=== PATIENT | male | born 1950 | race Caucasian/White ===

== ENCOUNTER 2016-09-08 12:54 | Outpatient (CLI) ==
[2016-09-08 13:26] LABS: BASOPHILS # (AUTO) 0.1 K/uL (0-0.2); BASOPHILS % (AUTO) 1.3 % (0.0-3.0); EOSINOPHILS # (AUTO) 0.2 K/ul (0.0-0.7); EOSINOPHILS % (AUTO) 3.7 % (0.0-7.0); HEMATOCRIT 44.3 % (42.0-52.0); HEMOGLOBIN 15.6 g/dl (14.0-18.0); IMMATURE GRANULOCYTE % (AUTO) 0.2 % (0.0-5.0); LYMPHOCYTES # (AUTO) 1.3 K/uL (0.60-3.4); LYMPHOCYTES % (AUTO) 21.6 (10.0-50.0); MEAN CORPUSCULAR HEMOGLOBIN 31.7 pg (27.0-31.0); MEAN CORPUSCULAR HGB CONC 35.2 (31.8-35.4); MONOCYTES # (AUTO) 0.7 K/uL (0.4-2.0); MONOCYTES % (AUTO) 10.8 (0-10); NEUTROPHILS # (AUTO) 3.8 K/ul (2.0-6.9); NEUTROPHILS % (AUTO) 62.4; PLATELET COUNT 265 10^3/uL (140-440); RED BLOOD COUNT 4.92 10^6/ul (4.70-6.10); WHITE BLOOD COUNT 6.02 K/ul (4.2-10.2)
[2016-09-08 13:41] LABS: ALBUMIN 4.1 g/dL (3.4-5.0); ALBUMIN/GLOBULIN RATIO 1.37; ANION GAP 14.6; BILIRUBIN,TOTAL 0.79 mg/dL (0.00-1.20); BUN/CREATININE RATIO 11.36; CALCIUM 9.5 mg/dL (8.2-10.2); CHOL/HDL RATIO 3.7 (4.5-6.4); CREATININE 0.88 mg/dL (0.60-1.10); POTASSIUM 4.6 mmol/L (3.5-5.1); TOTAL PROTEIN 7.1 g/dL (5.8-8.1)
== END 2016-09-08 12:55 | disposition home or self-care (01) ==
LOC: LAB 12:54
PROVIDERS: ATTEND Nurse Practitioner Family
DX: K21.9 Gastro-esophageal reflux disease without esophagitis (principal); E75.6 Lipid storage disorder, unspecified; K76.89 Other specified diseases of liver; Z12.5 Encounter for screening for malignant neoplasm of prostate
CPT/HCPCS: 36415; 80053; 80061; 80074; 85025

== ENCOUNTER 2016-10-11 10:09 | Outpatient (CLI) ==
--- NOTE | 2016-10-11 10:36 | CT ---
EXAM: CT Sinuses without contrast. HISTORY: Allergic rhinitis. Nasal drainage COMPARISON: None available. TECHNIQUE: Multiple axial images of the sinuses were obtained without intravenous contrast. Images were reformatted in the no sagittal and coronal plane. FINDINGS: Maxillary sinuses: Mild mucosal thickening bilaterally with partial opacification of the ostiomeata l units, greater on the left partially due to an old depressed left orbital floor fracture. Ethmoid sinuses: Moderate mucosal thickening bilaterally. Sphenoid sinuses: Mild mucosal thickening on the right. Left is clear. Frontal sinuses: Mild inferior right and moderate inferior left mucosal thickening. Nasal cavity: Mild leftward deviation of the nasal septum. Bilateral pinky bullosa, larger on the right. Mild nasal mucosal thickening bilaterally. Old left lamina papyracea fracture also noted Mastoid air cells are clear. No localized soft tissue abnormality identified. IMPRESSION: 1. Mild to moderate paranasal sinus mucosal disease. 2. Nasal mucosal thickening. 3. Mild leftward deviation of the nasal septum. 4. Old left orbital floor and lamina papyracea fractures
== END 2016-10-11 10:10 | disposition home or self-care (01) ==
LOC: RAD 10:09
PROVIDERS: ATTEND Nurse Practitioner Family
DX: J30.9 Allergic rhinitis, unspecified (principal)

== ENCOUNTER 2016-12-12 09:20 | Outpatient (CLI) | payer OTHER ==
--- NOTE | 2016-12-12 12:59 | MRI ---
EXAM: MRI right knee without contrast. HISTORY: Right knee pain. No right knee surgery reported.. TECHNIQUE: Using a local extremity coil on a high field strength magnet multiplanar multisequence ma gnet resonance imaging performed of the right knee without intravenous or intra-articular gadolinium contrast. FINDINGS: I do not have prior radiographs of the right knee available for comparison at the time of this dictation. Within the medial compartment the medial meniscus is intact without discrete surfacing meniscal tear. The medial compartment cartilage shows some mild chondrosis. No underlying subchondral edema. Tristan y productive osteophyte formation.. Within the lateral compartment the lateral meniscus intact without discrete surfacing meniscal tear. The lateral compartment cartilage congruent without focal underlying subchondral edema. Early produ ctive osteophyte formation. Within the patellofemoral compartment the patella seated with intact patellar attachment of the media l and lateral patellar retinaculum. Chondrosis over the central trochlear groove with trace subchond ral edema. The patellar cartilage relatively congruent. Early productive osteophyte formation viveros lofemoral compartment. Trace right knee effusion. 4 mm filling defect posteriorly at the joint line concerning for loose kristi dy. Intact ACL and PCL fibers. The extensor mechanism is intact as well.. The medial collateral li gament as well as lateral collateral ligament complex and posterolateral corner intact.. IMPRESSION: No discrete surfacing meniscal tear. Mild medial compartment chondrosis. Early tricompartmental productive osteophyte formation. Central trochlear groove chondrosis with trace subchondral edema. Trace right knee effusion. 4 mm filling defect posteriorly at the joint line concerning for loose kristi dy. Intact cruciate and collateral ligaments.
== END 2016-12-12 09:21 | disposition home or self-care (01) ==
LOC: RAD 09:20
PROVIDERS: ATTEND Nurse Practitioner Family
DX: M25.561 Pain in right knee (principal)

== ENCOUNTER 2017-04-19 16:36 | Outpatient (CLI) | payer OTHER | END 2017-04-19 16:37 | disposition home or self-care (01) | LOC: LAB 16:36 | PROVIDERS: ATTEND Nurse Practitioner Family | DX: K21.9 Gastro-esophageal reflux disease without esophagitis (principal); E75.6 Lipid storage disorder, unspecified; Z12.5 Encounter for screening for malignant neoplasm of prostate | CPT/HCPCS: 36415; 80053; 80061; 85025 ==

== ENCOUNTER 2017-07-27 09:44 | Observation (INO) ==
--- NOTE | 2017-07-27 11:07 | CT ---
EXAM: CT of the chest without contrast History: Chest pain and indigestion Comparison: CT abdomen pelvis 07/27/2017 Technique: Multiplanar CT images through the thorax were obtained without the administration of IV c ontrast Findings: Heart size is normal. No pericardial effusion. Coronary calcifications. Great vessels a re grossly unremarkable on this noncontrast study. No pathologically enlarged thoracic lymph nodes. No consolidation. No pleural fluid and no pneumothorax. 4 mm right lower lobe lung nodule. 1 mm lef t lower lobe lung nodule. No suspicious lung nodules or lung masses. For details in the upper abdomen, please see dedicated CT abdomen pelvis done on the same day. No acu te osseous abnormalities. Impression: 1. No acute intrathoracic process. 2. Coronary artery disease
--- NOTE | 2017-07-27 11:07 | CT ---
EXAM: CT ABDOMEN AND PELVIS HISTORY: Chronic epigastric pain TECHNIQUE: CT abdomen and pelvis without intravenous contrast. Images were reconstructed using 5 mm section thickness. Reformations were prepared. COMPARISON: 09/03/2015 FINDINGS: Diagnostic limitations exist without including contrast enhanced images. Stable small low attenuatio n lesion of the right hepatic lobe at about 12 mm, likely a cyst. Spleen within normal limits. Gallb ladder and pancreas are within normal limits. There is a 1 cm fatty nodule of the right adrenal glan d which is stable and most consistent with an adenoma. Punctate 1 mm calcification in the lower righ t kidney could be vascular in nature or secondary to a renal calculus. No hydronephrosis or ureteral obstruction. Mild atherosclerotic disease. Cannot exclude asymmetric thickening of the proximal gastric wall versus involuted mucosal architectu re from organ nondistension. The stomach was otherwise grossly unremarkable. Normal appendix. Norm al bowel gas pattern. Scattered colonic diverticulosis becoming more moderate at the distal colon. Prostate is mildly enlarged and lobulated. No definite gallbladder pathology. There is no ascites o r inflammatory infiltration of the abdominal fat. Ventral abdominal wall is intact. The bones reveal transitional vertebral body anatomy at the lumbos acral junction with moderately severe facet arthropathy of the lower spine. Bones appear demineraliz ed. There is mild pectus deformity placing mild mass effect on the anterior heart border. Lung base s are free of acute infiltrate and there is no evidence of pneumoperitoneum. IMPRESSION: 1. Possible asymmetric wall thickening of the stomach versus involuted - redundant mucosal architectu re from organ non distension. Consider further workup given history. 2. Stable probable right hepatic lobe cyst. 3. Stable fatty right adrenal nodule likely an adenoma. 4. Colonic diverticulosis without diverticulitis. 5. Early prostate enlargement and lobulation.
--- NOTE | 2017-07-27 11:54 | ED.PDOC ---
General ED Provider: Dr. POOJA ALEMAN Chief Complaint: Chest Pain Stated Complaint: epigastric abdominal pain Time Seen by Physician: 09:48 (drinks 1 pot a coffee per day) Mode of Arrival: Walk-In Information Source: Patient Exam Limitations: No limitations Primary Care Provider: JAGDISH FORD Nursing and Triage Documentation Reviewed and Agree: Yes Reviewed sepsis parameters & appropriate labs ordered?: Yes System Inflammatory Response Syndrome: Not Applicable Sepsis Protocol: For patient's 13 years and over: Temp is 96.8 and below OR 101 and greater Pulse >90 BPM Resp >20/minute Acutely Altered Mental Status Are patient's symptoms suggestive of a new infection, such as: -Pneumonia -Skin, Soft Tissue -Endocarditis -UTI -Bone, Joint Infection -Implantable Device -Acute Abdominal Infection -Wound Infection -Meningitis -Blood Stream Catheter Infection -Unknown System Inflammatory Response Syndrome: Not Applicable GI Complaint Exam - Abdominal Pain Complaint/Exam Onset: Gradual Duration: 1 night ago Symptoms Are: Resolved Timing: Intermittent Initial Severity: Mild Current Severity: None Location of Pain: Epigastric Radiates To: Reports: Chest. Denies: Back, Flank, LLQ, RLQ, Inguinal Character: Reports: Dull Aggravating: Reports: None Alleviating: Reports: None Associated Signs and Symptoms: Reports: Cough, Constipation. Denies: Diaphoresis, Fever, Chest pain, Dizziness, Back pain, Blood in stool, Dysuria, Urinary frequency, Decreased urine output, Decreased appetite, Discharge, Nausea , Vomiting, Diarrhea, Decreased activity Related History: Reports: Similar episode AAA Risk Factors: Reports: None, Hypertension Cardiac Risk Factors: Reports: Hypertension, Elevated lipids Testicular Torsion Risk Factors: Reports: None Surgical Obstruction Risk Factors: Reports: None Related Surgical History: Reports: None Abdominal Findings: Present: None Male Body Picture: 1 - pain Differential Diagnoses: PUD, Other (angina) Quality Indicators for AMI: EKG in 10min. Quality Indicators for Cardiac Chest Pain: EKG in 10min. Quality Indicator For Non-Traumatic Chest Pain/Syncope: EKG Performed Review of Systems - Review Of Systems Constitutional: Reports: No symptoms Eyes: Reports: No symptoms Ears, Nose, Mouth, Throat: Reports: No symptoms Respiratory: Reports: No symptoms Cardiac: Reports: Chest pain GI: Reports: Abdominal pain : Reports: No symptoms Musculoskeletal: Reports: No symptoms Skin: Reports: No symptoms Neurological: Reports: No symptoms Endocrine: Reports: No symptoms Hematologic/Lymphatic: Reports: No symptoms All Other Systems: Reviewed and Negative Past Medical History - Past Medical History Previously Healthy: Yes Endocrine: Reports: Dyslipidemia Cardiovascular: Reports: Hypertension Respiratory: Reports: None Hematological: Reports: None Gastrointestinal: Reports: None Genitourinary: Reports: None Neuro/Psych: Reports: None Musculoskeletal: Reports: None Cancer: Reports: None - Surgical History General Surgical History: Reports: None - Family History Family History: Reports: None - Social History Smoking Status: Never smoker Hx Substance Use: No Alcohol Screening: None Physical Exam - Physical Exam Appearance: Well-appearing, No pain distress, Well-nourished Eyes: ETTA, EOMI, Conjunctiva clear ENT: Ears normal, Nose normal, Oropharynx normal Respiratory: Airway patent, Breath sounds clear, Breath sounds equal, Respirations nonlabored Cardiovascular: RRR, Pulses normal, No rub, No murmur GI/: Soft, Nontender, No masses, Bowel sounds normal, No Organomegaly Musculoskeletal: Normal strength, ROM intact, No edema, No calf tenderness Skin: Warm, Dry, Normal color Neurological: Sensation intact, Motor intact, Reflexes intact, Cranial nerves intact, Alert, Oriented Psychiatric: Affect appropriate, Mood appropriate Physician Notification - Case Discussed Physician Notified: [email or web address] Time of Notification: 11:57 Admit To: Observation Critical Care Note - Critical Care Note Total Time (mins): 0 Course - Course Hematology/Chemistry: 07/27/17 10:05 07/27/17 10:05 Orders, Labs, Meds: Lab Review 07/27/17 07/27/17 10:05 10:05 WBC 6.47 RBC 4.55 L Hgb 14.3 Hct 40.5 L MCV 89.0 MCH 31.4 H MCHC 35.3 RDW Coeff of Tomas 12.9 Plt Count 232 Immature Gran % (Auto) 0.2 Neut % (Auto) 72.0 Lymph % (Auto) 18.1 Whitfield % (Auto) 7.0 Eos % (Auto) 1.9 Baso % (Auto) 0.8 Immature Gran # (Auto) 0.0 Neut # (Auto) 4.7 Lymph # (Auto) 1.2 Whitfield # (Auto) 0.5 Eos # (Auto) 0.1 Baso # (Auto) 0.1 Sodium 132 L Potassium 4.1 Chloride 99 Carbon Dioxide 25 Anion Gap 12.1 BUN 9 Creatinine 0.81 Estimated GFR (MDRD) 94.00 BUN/Creatinine Ratio 11.11 Glucose 133 H Calcium 9.2 Total Bilirubin 0.7 AST 17 ALT 11 L Alkaline Phosphatase 40 L Total Creatine Kinase 67 Troponin I < 0.0100 Total Protein 6.9 Albumin 3.8 Globulin 3.1 Albumin/Globulin Ratio 1.23 Orders Category Date Time Status EKG-(ED ONLY) Stat CARDIO 07/27/17 10:00 Completed CBC W/ AUTO DIFF Stat LAB 07/27/17 10:05 Completed COMPREHENSIVE METABOLIC PANEL Stat LAB 07/27/17 10:05 Completed CREATINE KINASE Stat LAB 07/27/17 10:05 Completed TROPONIN I Stat LAB 07/27/17 10:[address] ABDOMEN/PELVIS WO CONTRAST Stat RADS 07/27/17 10:[address] CHEST W/O CONTRAST Stat RADS 07/27/17 10:01 Completed Vital Signs: Temp Pulse Resp BP Pulse Ox 07/27/17 09:45 97.9 F 75 20 187/77 H 95 Departure - Departure Time of Disposition: 11:55 Disposition: PLACED OBSERVATION Discharge Problem: Chest pain Abdominal pain Qualifiers: Abdominal location: unspecified location Qualified Code(s): R10.9 - Unspecified abdominal pain Instructions: Angina (DC) Condition: Good Pt referred to PMD for follow-up: Yes IPMP verified?: No Additional Instructions: Please call your Family Physician as soon as possible to schedule a follow-up appointment. Allergies/Adverse Reactions: Allergies No Known Allergies Allergy (Verified 07/27/17 09:52) Home Medications: Ambulatory Orders Diphenhydramine HCl [Benadryl Allergy] 25 mg PO BEDTIME 07/27/17 Disposition Discussed With: Patient
[2017-07-27 13:56] VITALS: BMI 21.7
[2017-07-27] MEDS: SODIUM CHLORIDE 1,000 ML IV SCH (14:10)
[2017-07-27] MEDS ORDERED: GI COCKTAIL PO PRN (14:47)
[2017-07-27] MEDS: CARAFATE PO SCH ×3 (15:22→20:49)
[2017-07-27] MEDS: PROTONIX PO SCH (15:22)
[2017-07-28] MEDS: SODIUM CHLORIDE 1,000 ML IV SCH (02:03)
[2017-07-28] MEDS: CARAFATE PO SCH ×2 (05:50→12:54)
[2017-07-28] MEDS: PROTONIX PO SCH (05:50)
[2017-07-28] MEDS ORDERED: ZOCOR PO SCH (09:00)
[2017-07-28 11:08] VITALS: BP 151/82; TEMP 97.5
--- NOTE | 2017-08-28 10:49 | HP ---
DATE OF SERVICE: 07/27/17 CHIEF COMPLAINT: Chest pain. HISTORY OF PRESENT ILLNESS: The patient came to the emergency room with 3 to 4 months of intermittent chest pain, epigastric area that feels like indigestion but gradually the pain is going to the left side of the chest, radiates to the left arm sometimes associated with some shortness of breath. No fever, no chills. No dizziness. The patient was seen by Dr. Aranda in the emergency room. Given the patient's age of 67, intermittent pain, the patient was admitted to the hospital to rule out acute coronary syndrome. REVIEW OF SYSTEMS: CONSTITUTIONAL: No fever, no chills. HEENT: Normal. ENDOCRINE: No weight gain, no weight loss. CVS: Chest pain. Shortness of breath sometimes. Palpitations sometimes. No radiation. RESPIRATORY: No cough, no hemoptysis. GI: No nausea, no vomiting. No abdominal pain. : No hematuria. No polyuria. MUSCULOSKELETAL: No joint swelling. PSYCHIATRIC: Not anxious. No depression. No suicidal thoughts. No homicidal thoughts. SKIN: Intact. No rash. PHYSICAL EXAMINATION: V/S: BP 187/77, respiratory rate 20, heart rate 75, temperature 97.9, saturation 95. HEENT: Normocephalic, atraumatic. Mucosa dry. NECK: Supple. No JVD, no carotid bruit. No lymphadenopathy. LUNGS: Clear to auscultation. No rales or rhonchi. HEART: S1, S2 normal. No S3. No murmur, gallop or regurgitation. ABDOMEN: Soft, nontender. Bowel sounds active. No rigidity. No rebound or guarding. No CVA tenderness. EXTREMITIES: No cyanosis, clubbing or pedal edema. MUSCULOSKELETAL: No joint swelling. NEUROLOGIC: Awake, alert, oriented times three. No focal deficit. LYMPHATIC: No lymph nodes palpable. SKIN: Intact. LABS: White count 6.47, hemoglobin 14.3, hematocrit 40.5, platelet count 232. Sodium 132, potassium 4.1, chloride 99, bicarb 25, BUN 9, creatinine 0.81, glucose 133 , ALT 11, alkaline phophatase 40. First set of cardiac enzymes negative. CT abdomen and pelvis showed possible asymmetric wall thickening of the stomach. CT chest done, which showed coronary artery disease. ASSESSMENT: 1. Admit patient for observation, chest pain, rule out ACS. 2. History of GERD 3. History of kidney stones PLAN: 1. Admit the patient for observation. 2. Protonix and Carafate. TIME SPENT: More than 65 minutes MTDD
--- NOTE | 2017-08-28 11:26 | SSS ---
DATE OF SERVICE: 07/28/17 CHIEF COMPLAINT: Chest pain, epigastric pain which comes and goes for almost 3 to 4 months, nonspecific. He sometimes has a burning sensation. Certain foods make the pain worse. When seen by the ER physician, he wanted to admit to rule out acute coronary syndrome. EKG done in the emergency room showed normal sinus bradycardia with [address]-T wave changes. First set of cardiac enzymes are negative. The patient was admitted for observation. PAST MEDICAL HISTORY: GERD Dyslipidemia Hypertension History of kidney stones REVIEW OF SYSTEMS: CONSTITUTIONAL: No night sweats. No fatigue, malaise, lethargy. No fever or chills. HEENT: Eyes: No visual changes. No eye pain. No eye discharge. ENT: No runny nose. No epistaxis. No sinus pain. No sore throat. No odynophagia. No ear pain. No congestion. RESPIRATORY: No cough, no congestion. No hemoptysis. No shortness of breath. CARDIOVASCULAR: No angina symptoms. No CHF symptoms. No atypical chest pain for CAD. No palpitations. No orthopnea. GASTROINTESTINAL: No abdominal pain. No nausea or vomiting. No diarrhea or constipation. No hematemesis. No hematochezia. GENITOURINARY: No dysuria. No hematuria. No obstructive symptoms. No discharge. No pain. No significant abnormal bleeding. MUSCULOSKELETAL: No musculoskeletal pain. No joint swelling. NEUROLOGICAL: Awake, alert, oriented to time, place and person. No headache. No neck pain. No syncope. No seizures. No dizziness. PSYCHIATRIC: Not anxious. No depression. No suicidal thoughts. No homicidal thoughts. SKIN: No rash. No lesions. No wounds. ENDOCRINE: No unexplained weight loss. No weight gain. HEMATOLOGIC/LYMPHATIC: No anemia. No purpura. No petechiae. No prolonged or excessive bleeding. No palpable lymph nodes. PERSONAL/FAMILY HISTORY/SOCIAL HISTORY: ; Retired. PHYSICAL EXAMINATION: VITAL SIGNS: BP 154/72, respiratory rate 16, heart rate 54, temperature 98.1, saturation 98%. HEENT: Head normocephalic, atraumatic. Eyes: Extraocular muscles are intact. Pupils are equal, round and reactive to light and accommodation. Ears: No lesions. Nose appeared normal. Throat: No exudate or erythema. NECK: Supple. No JVD, no carotid bruit. No lymphadenopathy or thyromegaly. LUNGS: Clear to auscultation. Percussion note normal. Chest symmetrical. HEART: S1, S2, no S3. No murmurs. No cyanosis or clubbing. No ascites. Pulses: Dorsalis pedis and posterior tibial pulses +1 to +2 both sides. ABDOMEN: Soft. Nontender. Bowel sounds active. No CVA tenderness. No mass felt. EXTREMITIES: No edema. Full range of motion of all extremities, equal. NEUROLOGIC: No focal deficit. Cranial nerves II through XII are grossly intact. No headache, no double vision or headache. SKIN: Not dry. Intact. Turgor - normal. LYMPHATIC: No palpable lymph nodes/no lymphedema. MUSCULOSKELETAL: Normal joints with no swelling. Muscle tone is normal. Old/present records reviewed Office records reviewed. ALLERGIES: NKDA MEDICATIONS: (Home) Omeprazole Simvastatin Benadryl LABS/EKG'S/X-RAY/ECHO/ABG: Sodium 135, potassium 4.0, chloride 104, bicarb 21, BUN 9, creatinine 0.78, glucose 92. White count 7.83, hemoglobin 14.0, hematocrit 39.8, platelet count 219. CT of abdomen and pelvis shows thickening of the wall of stomach. CT chest showed coronary calcifications. PROGRESS NOTES: See EMR. BRIEF HOSPITAL COURSE: The patient was admitted to the hospital by giving GI cocktail and Carafate. The patient felt better by the next day, did not have any problems or complications during this time. He said he would come and see me in the [facility] so that he can have further evaluation and wants to have endoscopy and colonoscopy done. As the patient was a level patient and can come for the tests , the patient was discharged home. Strictly advised that he should have a stress test and echocardiogram as outpatient. Elizabeth Pardo is scheduling a stress test as outpatient with the patient. DIAGNOSES: 1. CHEST PAIN, NONCARDIAC 2. CORONARY CALCIFICATIONS ON CT SCAN 3. GERD 4. PEPTIC ULCER DISEASE 5. SEASONAL ALLERGIES 6. DYSLIPIDEMIA PLAN: 1. Discharge the patient home. 2. Lifestyle modifications, diet control. 3. Followup in the [facility] in 5 to 7 days so that further evaluation can be done as the patient does not want to stay in the hospital any longer, and is being discharged home. He is a level patient to be followed. TIME SPENT: More than 65 minutes. MIKEY
== END 2017-07-28 16:02 | disposition home or self-care (01) ==
LOC: ED 09:44 → MEDSURG A 12:10
PROVIDERS: ADMIT Emergency Medicine; ATTEND Emergency Medicine
DX: R07.89 Other chest pain (principal); R10.13 Epigastric pain; K21.9 Gastro-esophageal reflux disease without esophagitis; K27.9 Peptic ulcer, site unspecified, unspecified as acute or chronic, without hemorrhage or perforation; I10 Essential (primary) hypertension; I25.84 Coronary atherosclerosis due to calcified coronary lesion; E78.5 Hyperlipidemia, unspecified; J30.2 Other seasonal allergic rhinitis; Z87.442 Personal history of urinary calculi; Z79.899 Other long term (current) drug therapy
CPT/HCPCS: 36415; 80053; 80061; 82550; 84443; 84484; 85025; 93005; 93010; 96360; 96361; 99217; 99220; 99284

== ENCOUNTER 2017-09-03 16:07 | Outpatient (CLI) | END 2017-09-03 16:08 | disposition home or self-care (01) | LOC: FCC-LAB 16:07 | PROVIDERS: ATTEND Nurse Practitioner Family | DX: R07.89 Other chest pain (principal); I25.10 Atherosclerotic heart disease of native coronary artery without angina pectoris; Z79.899 Other long term (current) drug therapy | CPT/HCPCS: 36415; 80053; 80061; 81001; 85025; 86140 ==

== ENCOUNTER 2018-08-13 13:57 | Outpatient (CLI) | END 2018-08-13 13:58 | disposition home or self-care (01) | LOC: RHC-LAB 13:57 → FCC-LAB 13:58 | PROVIDERS: ATTEND Family Medicine | DX: E78.00 Pure hypercholesterolemia, unspecified (principal); I10 Essential (primary) hypertension; N40.0 Benign prostatic hyperplasia without lower urinary tract symptoms; F51.01 Primary insomnia | CPT/HCPCS: 36415; 80053; 80061; 84153; 85025 ==